=== PATIENT | female | born 1970 | race Caucasian/White ===

== ENCOUNTER → 2018-12-06 | Day surgery (SDC) | payer OTHER ==
--- NOTE | 2018-12-07 09:48 | OP ---
DATE OF OPERATION: 12/06/2018 PREOPERATIVE DIAGNOSIS: Abnormal left mammography. POSTOPERATIVE DIAGNOSIS: Abnormal left mammography. PROCEDURE: Left breast stereotactic needle biopsy with clip. SURGEON: Donna Scanlon M.D. ANESTHESIA: Local. COMPLICATIONS: None. This was a sterile procedure. INDICATION FOR PROCEDURE: The patient presented with a screening mammogram that noted multiple areas of calcifications; however, there were some that were considered suspicious in the outer left breast. My recommendation is a needle biopsy for definitive diagnosis. The procedure was discussed with all the questions answered. PROCEDURE IN DETAIL: Patient brought to [facility] in [place], laid prone on the OR table. Using the approach, the calcifications in the outer left breast were identified. A sterile prep was obtained. A target was chosen. There was a positive stroke margin. Using Betadine and 1% lidocaine a 9 petite Suros device was used to take several cores from this area. Cores were sent to pathology protocol, and T-clip was deployed in the area. Hemostasis assured with direct pressure. The incision was closed with Steri-Strips. She tolerated the procedure well. She left the breast imaging center in good condition. DONNA SCANLON M.D. BEREKET/[id number]
--- NOTE | 2018-12-07 11:58 | PATH ---
Surgical Pathology Report Patient Name: CAITLYN SAAVEDRA [facility]. Rec. #: [id number] /Age/Gender: 1970 (Age: 48) / F Account: [id number] Location: [facility] [place] Taken: 12/06/2018 Received: 12/06/2018 Reported: 12/07/2018 Physicians: Donna Banegas M.D. Specimen(s) Received A: LEFT BREAST SPECIMEN-WITH CALCIFICATIONS B: LEFT BREAST SPECIMEN-WITHOUT CALCIFICATIONS Clinical History Nonpalpable lesion Mammographic findings: Microcalcification, suspicious Final Diagnosis A. BREAST, LEFT, WITH CALCIFICATIONS, STEREOTACTIC BIOPSY: ATYPICAL DUCTAL HYPERPLASIA (ADH) AND COLUMNAR CELL CHANGE WITH ASSOCIATED CALCIFICATIONS. B. BREAST, LEFT, WITHOUT CALCIFICATIONS, STEREOTACTIC BIOPSY: BENIGN BREAST TISSUE. Electronically Signed Lola Arrieta M.D. Gross Description A. Received in formalin labeled "left breast with calcifications," are 3 hough-yellow, cylindrical portions of fibroadipose tissue ranging from 1.1-1.4 cm in length and averaging 0.4 cm in diameter. The specimens are submitted in toto in one cassette. B. Received in formalin labeled "left breast without calcifications," are 5 hough-yellow, cylindrical portions of fibroadipose tissue ranging from 0.5-1.6 cm in length and averaging 0.3 cm in diameter. The specimens are submitted in toto in one cassette. Time to formalin fixation: 5 minutes Total formalin fixation time: Approximately 6 hours. /12/06/2018 saudi12/06/2018
== END | disposition home or self-care (01) ==
LOC: FMAMMOTONE 10:01
PROVIDERS: ATTEND Surgery
PROC: 0HBU3ZX Excision of Left Breast, Percutaneous Approach, Diagnostic (ICD-10-PCS; principal; 2018-12-06)
DX: N60.92 Unspecified benign mammary dysplasia of left breast (principal); N64.89 Other specified disorders of breast; R92.1 Mammographic calcification found on diagnostic imaging of breast
CPT/HCPCS: 19081; 88305-TC

== ENCOUNTER 2019-01-26 09:55 | Day surgery (SDC) | payer OTHER ==
[2019-01-24 18:18] VITALS: BMI 34.4
[2019-01-26] MEDS ORDERED: LIDOCAINE HCL 1%, 10 MG/ML (20ML VIAL) ONE (11:12)
[2019-01-26] MEDS ORDERED: MIDAZOLAM HCL 2 MG/2 ML SINGLE DOSE VIAL ONE (13:11)
[2019-01-26] MEDS ORDERED: PROPOFOL 20 ML ONE (13:11)
[2019-01-26] MEDS ORDERED: KETOROLAC TROMETHAMINE 30 MG/1 ML VIAL ONE (13:33)
[2019-01-26] MEDS ORDERED: DEXAMETHASONE SOD PHOSPHATE 4 MG/1 ML VIAL ONE (13:33)
[2019-01-26] MEDS ORDERED: ceFAZolin SODIUM 1 GM VIAL ONE (13:33)
[2019-01-26] MEDS ORDERED: ceFAZolin SODIUM 1 GM VIAL IVPB ONE (13:40)
[2019-01-26] MEDS ORDERED: oxyCODONE HCL 5 MG TABLET PO PRN (13:50)
[2019-01-26] MEDS ORDERED: ONDANSETRON 4 MG/2 ML VIAL IVPUSH PRN (13:50)
[2019-01-26] MEDS ORDERED: LACTATED RINGERS SOLUTION 1,000 ML IV SCH (14:00)
[2019-01-26] MEDS ORDERED: EPHEDRINE SULFATE/0.9% NACL/PF 50 MG/10 ML SYRINGE NR ONE (14:06)
[2019-01-26] MEDS ORDERED: LIDOCAINE HCL 1%, 10 MG/ML (20ML VIAL) NR ONE (14:11)
[2019-01-26 16:53] VITALS: BP 137/76; PULSE 89; TEMP 97.9
--- NOTE | 2019-01-26 21:20 | OP ---
DATE OF OPERATION: 01/26/2019 PREOPERATIVE DIAGNOSIS: Left breast atypia. POSTOPERATIVE DIAGNOSIS: Left breast atypia. PROCEDURE: Left breast wide localized lumpectomy. SURGEON: Donna Banegas M.D. ANESTHESIA: General. ESTIMATED BLOOD LOSS: Minimal. DRAINS: None. DISPOSITION: Stable. This was a sterile procedure. INDICATION FOR PROCEDURE: Patient underwent a routine screening mammography that noted microcalcifications in the outer left breast. The needle biopsy showed atypia conditions and excision. The procedure was discussed with all the questions answered. PROCEDURE IN DETAIL: Patient was brought to [facility] in [place], was taken down to breast imaging, where wire used to localize the clip in the outer left breast. She was brought up to the operating room, and after induction of general anesthesia and IV antibiotics, the left breast was prepped and draped in usual sterile fashion. The area of the outer left breast was anesthetized with 1% lidocaine without epinephrine. A radial incision was made in the left 3 o'clock location. A wire was used as a guide to get down to the area which was incised en bloc and tagged with a long suture lateral, short suture superior sent as the left breast lumpectomy for a specimen radiograph. Hemostasis was assured with electrocautery. The parenchyma was approximated with interrupted 2-0 Vicryl, skin approximated with interrupted 2-0 Vicryl, running 4-0 Prolene. A sterile dressing with Tegaderm was applied. Specimen radiographs showed the clip and wire to be intact within the specimen. This was then sent to Pathology for permanent section. She tolerated procedure well, was extubated on the operating room table, taken to recovery in good condition. Christie CROOK/[id number]
--- NOTE | 2019-01-30 17:28 | PATH ---
Surgical Pathology Report Patient Name: CAITLYN SAAVEDRA [facility]. Rec. #: [id number] /Age/Gender: 1970 (Age: 48) / F Account: [id number] Location: [facility] Taken: 01/26/2019 Received: 01/26/2019 Reported: 01/30/2019 Physicians: Donna Banegas M.D. Specimen(s) Received LEFT BREAST LUMPECTOMY Clinical History Atypical left breast Final Diagnosis BREAST, LEFT, LUMPECTOMY: BENIGN BREAST PARENCHYMA WITH CHANGES OF PRIOR BIOPSY IN A BACKGROUND OF FIBROCYSTIC CHANGES INCLUDING STROMAL FIBROSIS, MICROCYSTS, APOCRINE METAPLASIA, COLUMNAR CELL CHANGES, USUAL DUCTAL HYPERPLASIA, AND ASSOCIATED MICROCALCIFICATIONS. Electronically Signed Do Britt M.D. Gross Description Received fresh on an AccuGrid, labeled "left breast lumpectomy" is a 16 g, 4.3 x 2.5 x 2 cm. hough-yellow, irregular, portion of fibroadipose tissue with a needle localization wire present. There is a short suture marking the superior aspect and a long suture marking the lateral aspect, per the surgeon. There is no skin or nipple present. The specimen is inked as follows: superior and lateral blue; inferior green; medial yellow; anterior red; deep black. The specimen is serially sectioned from medial to lateral. Sectioning shows fibrofatty tissue. No definitive lesion identified. Entire specimen is submitted sequentially in 10 cassettes: 1- medial margin, 9- lateral margin, 10-anterior margin. Total formalin fixation time: Approximately 6 hours MLSLuzma/01/26/2019 san/01/26/2019
== END 2019-01-26 16:40 | disposition home or self-care (01) ==
LOC: JASU-SURG 09:55
PROVIDERS: ATTEND Surgery
PROC: 0HBT0ZZ Excision of Right Breast, Open Approach (ICD-10-PCS; principal; 2019-01-26 13:00)
DX: N60.81 Other benign mammary dysplasias of right breast (principal); N60.31 Fibrosclerosis of right breast
CPT/HCPCS: 19281; 84703; 88307-TC; 94760